=== PATIENT | female | born 1945 | race Caucasian/White ===

== ENCOUNTER 2023-02-26 06:48 | Emergency (ER) | payer OTHER ==
[2023-02-26 06:56] VITALS: BP 143/78; PULSE 93; RESP 19; TEMP 99; BMI 28.3
[2023-02-26 08:24] LABS: EPITHELIAL CELLS FEW /hpf
== END 2023-02-26 08:29 | disposition home or self-care (01) ==
LOC: FER 06:48
DX: R30.0 Dysuria (principal); R35.0 Frequency of micturition; R39.15 Urgency of urination; R39.11 Hesitancy of micturition; R50.9 Fever, unspecified; N39.0 Urinary tract infection, site not specified
CPT/HCPCS: 81003; 81015; 87086; 99283-25